=== PATIENT | female | born 1980 | race Caucasian/White ===

== ENCOUNTER 2024-03-24 13:38 | Emergency (ER) | payer OTHER ==
[~2024-03-24] VITALS: Ht 165.1 cm; Wt 110.0 kg
--- NOTE | ~2024-03-24 | EKG ---
[facility] [address] [place], [place] [address] Draft EK completed, results pending confirmation PATIENT NAME: BOAZ SANTORO Electrocardiogram DATE OF : 78 PHYSICIAN: PRELIMINARY REPORT #: [id number] REPORT IS CONFIDENTIAL AND NOT TO BE RELEASED WITHOUT AUTHORIZATION
[~2024-03-24 13:38] MED LIST: LEVOTHYROXINE75 MCG PO; METFORMIN HCL750 MG PO; METHYLDOPA250 MG PO; MULTIVITAMINS1 EAC7 PO; OMEPRAZOLE20 MG PO
[2024-03-24] MEDS ORDERED: NITROGLYCERIN 0.4 MG SUBL SL PRN (14:15)
[2024-03-24] MEDS ORDERED: ASPIRIN 81 MG CHEW PO ONE (14:15)
[2024-03-24 14:16] LABS: BASOPHILS 1.1 % (0-2); HEMATOCRIT 45.1 % (35.0-50.0); HEMOGLOBIN 14.8 g/dL (12.0-18.0); LYMPHOCYTES 23.2 % (24-44); MCH 28.1 (27-36); MCHC 32.9 g/dl (30-36); MCV 85.4 fl (81-99); MONOCYTES 3.5 % (0-12); NEUTROPHILS 71.2 % (39-80); PLATELET COUNT 346 K/uL (140-440); RBC 5.28 M/ul (4.3-5.7)
[2024-03-24 14:26] LABS: ALBUMIN 3.7 g/dL (3.4-5.0); ALBUMIN/GLOBULIN RATIO 0.82 (1.1-2.4); ANION GAP 14.4 (7-21); BILIRUBIN, TOTAL 0.4 ng/dL (0.2-1.0); CALCIUM 8.5 mg/dL (8.5-10.1); CREATININE, SERUM 0.8 mg/dL (0.55-1.02); MAGNESIUM 1.9 mg/dL (1.8-2.4); POTASSIUM 3.4 mmol/L (3.5-5.1); PROTEIN, TOTAL 8.2 g/dL (6.4-8.2)
[2024-03-24] MEDS ORDERED: LABETALOL HCL 20 MG/4 ML VIAL IV ONE ×2 (14:30→16:30)
[2024-03-24] MEDS ORDERED: ACETAMINOPHEN 500 MG TAB PO ONE (15:45)
[2024-03-24] MEDS ORDERED: KETOROLAC TROMETHAMINE 15 MG/ML VIAL IV ONE (15:45)
[2024-03-24] MEDS ORDERED: lisinopriL 10 MG TAB PO ONE (16:30)
[2024-03-24] MEDS ORDERED: LISINOPRIL10 MG PO (16:59)
[2024-03-24 17:18] VITALS: BP 170/107
== END 2024-03-24 17:27 | disposition home or self-care (01) ==
LOC: ED 13:38
PROVIDERS: Emergency Medicine
DX: I16.0 Hypertensive urgency (principal); I10 Essential (primary) hypertension; Z88.8 Allergy status to other drugs, medicaments and biological substances; Z79.899 Other long term (current) drug therapy
CPT/HCPCS: 36415; 70450; 71045; 80053; 83735; 84484; 85025; 93005; 93010; A9270; J1885